=== PATIENT | female | born 1995 | race Caucasian/White ===

== ENCOUNTER 2017-12-13 17:13 | Emergency (ER) | payer OTHER ==
[2017-12-13] MEDS ORDERED: DIPHTH,PERTUSS(ACELL),TET 0.5 ML DISP.SYRIN IM ONE (17:14)
--- NOTE | 2017-12-13 17:14 | PDOC ---
History of Present Illness - General History Source: Patient Exam Limitations: No Limitations - History of Present Illness Initial Comments: 12/13/17 18:02 The patient is a 22 year old female with a significant PMH of melanoma who presents to the emergency department with a left foot injury prior to arrival to the ED. The patient [place] she stepped on a metal dariusz in the water. The patient reports the dariusz got lodged into her left foot. The patient states that the dariusz subsequently broke off into her foot. She reports some mild pain. The patient denies any other symptoms. She denies any other symptoms. She denies any numbness, weakness or tingling sensation. She denies any fever, chills, nausea, vomit, diarrhea ,constipation or urinary symptoms. She denies any chest pain, shortness of breath, headache and dizziness. The patient denies any other complaints. <Charu Grande - Last Filed: 12/13/17 18:02> <Ciera Garibay - Last Filed: 12/13/17 18:51> - General Chief Complaint: Foreign Body (FB) Stated Complaint: LEFT FOOT FISHING HOOK Time Seen by Provider: 12/13/17 17:14 Past History <Charu Grande - Last Filed: 12/13/17 18:02> - Past Medical History Anemia: No Asthma: No Cancer: Yes (MALIGNANT MELANOMA LEFT THIGH) Cardiac Disorders: No CVA: No COPD: No CHF: No Dementia: No Diabetes: No GI Disorders: No Disorders: No HTN: No Hypercholesterolemia: No Liver Disease: No Seizures: No Thyroid Disease: No - Immunization History Immunization Up to Date: Yes - Suicide/Smoking/Psychosocial Hx Smoking Status: Yes Smoking History: Current every day smoker Have you smoked in the past 12 months: Yes Number of Cigarettes Smoked Daily: 3 'Breaking Loose' booklet given: 06/15/15 Hx Alcohol Use: No Drug/Substance Use Hx: No Substance Use Type: None Hx Substance Use Treatment: No <Ciera Garibay - Last Filed: 12/13/17 18:51> - Past Medical History Allergies/Adverse Reactions: Allergies Allergy/AdvReac Type Severity Reaction Status Date / Time No Known Drug Allergies Allergy Verified 12/13/17 17:14 Home Medications: Ambulatory Orders Cephalexin Monohydrate [Keflex -] 500 mg PO Q6H #28 capsule 12/13/17 levoFLOXacin [Levaquin] 750 mg PO DAILY #7 tab 12/13/17 Review of Systems - Review of Systems Able to Perform ROS?: Yes Comments:: 12/13/17 18:02 GENERAL/CONSTITUTIONAL: No fever or chills. No weakness. HEAD, EYES, EARS, NOSE AND THROAT: No change in vision. No ear pain or discharge. No sore throat. CARDIOVASCULAR: No chest pain or shortness of breath. RESPIRATORY: No cough, wheezing, or hemoptysis. GASTROINTESTINAL: No nausea, vomiting, diarrhea or constipation. GENITOURINARY: No dysuria, frequency, or change in urination. MUSCULOSKELETAL:(+) left foot injury. No joint or muscle swelling or pain. No neck or back pain. SKIN: No rash NEUROLOGIC: No headache, vertigo, loss of consciousness, or change in strength/ sensation. ENDOCRINE: No increased thirst. No abnormal weight change. HEMATOLOGIC/LYMPHATIC: No anemia, easy bleeding, or history of blood clots. ALLERGIC/IMMUNOLOGIC: No hives or skin allergy. <Charu Grande - Last Filed: 12/13/17 18:02> *Physical Exam - Vital Signs Last Vital Signs Temp Pulse Resp BP Pulse Ox 98.5 F 91 H 20 113/68 97 12/13/17 17:13 12/13/17 17:13 12/13/17 17:13 12/13/17 17:13 12/13/17 17:13 - Physical Exam Comments: 12/13/17 18:03 GENERAL: Awake, alert, and fully oriented, in no acute distress HEAD: No signs of trauma EYES: PERRLA, EOMI, sclera anicteric, conjunctiva clear ENT: Auricles normal inspection, hearing grossly normal, nares patent, oropharynx clear without exudates. Moist mucosa NECK: Normal ROM, supple, no lymphadenopathy, JVD, or masses LUNGS: Breath sounds equal, clear to auscultation bilaterally. No wheezes, and no crackles HEART: Regular rate and rhythm, normal S1 and S2, no murmurs, rubs or gallops ABDOMEN: Soft, nontender, normoactive bowel sounds. No guarding, no rebound. No masses EXTREMITIES: (+) left foot dariusz going under plantar surface of left 5th toe at head of MTP with skin tenting on external side of toe, small superficial abrasion to bilateral knee. Normal range of motion, no edema. No clubbing or cyanosis. No cords, erythema. NEUROLOGICAL: Cranial nerves II through XII grossly intact. Normal speech, normal gait SKIN: Warm, Dry, normal turgor, no rashes or lesions noted. <Charu Grande - Last Filed: 12/13/17 18:02> Procedures - Additional Procedures Additional Procedures: other Progress: 12/13/17 18:49 foreign body removal: foot cleaned and washed with nss, foot prepped with chlorhexadine. pt given 2% lidocaine - 5cc SQ for anesthesias. Using a forceps, the dariusz was removed with ease. The foot was irrigated with 1L nss after removal and also washed with betadine injection into the wound. THe foot was then soaked in a betadine wash. No bleeding from the site. Pt tolerated the procedure well. <Ciera Garibay - Last Filed: 12/13/17 18:51> Medical Decision Making - Medical Decision Making 12/13/17 17:29 22yo female with L foot 5th toe foreign body going through 5th mtp. -will obtain xray -will update tetanus -will give abx 12/13/17 18:07 pt with dariusz to plantar surface of the foot case discussed with Dr. Tobias who recommends pulling it out and thoroughly irrigating will give abx reommends follow up thursday in the office for a wound check 12/13/17 18:42 repeat xray clear no foreign body present dressing applied to the foot no bleeding from the puncture site stable for d/c to home discussed all reasons to return to the ED and need for follow up <Ciera Garibay - Last Filed: 12/13/17 18:51> *DC/Admit/Observation/Transfer - Attestations Scribe Attestion: 12/13/17 18:03 Documentation prepared by Charu Grande, acting as medical cost consultant for Ciera Garibay MD <Charu Grande - Last Filed: 12/13/17 18:02> - Discharge Dispostion Decision to Admit order: No - Attestations Physician Attestion: 12/13/17 18:13 I, Dr. Ciera Garibay, DO, attest that this document has been prepared under my direction and personally reviewed by me in its entirety. I further attest, that it accurately reflects all work, treatment, procedures and medical decision -making performed by me. <Ciera Garibay - Last Filed: 12/13/17 18:51> Diagnosis at time of Disposition: Puncture wound of foot, left, Foreign body (FB) in soft tissue - Discharge Dispostion Disposition: HOME Condition at time of disposition: Stable - Prescriptions Prescriptions: Cephalexin Monohydrate [Keflex -] 500 mg PO Q6H #28 capsule levoFLOXacin [Levaquin] 750 mg PO DAILY #7 tab - Referrals Referrals: Brian Tobias MD [Staff Physician] - - Patient Instructions Printed Discharge Instructions: DI for Puncture Wound Additional Instructions: Please keep the wound clean and dry. Please take all antibiotics to completion. Please follow up with the orthopedist on thursday. Please call thursday to make an appointment to see Dr. Tobias. If you develop fevers, drainage from the wound, or redness please return to the ED immediately.
[2017-12-13 17:37] VITALS: BP 113/68; PULSE 91; TEMP 98.5
[2017-12-13] MEDS ORDERED: LIDOCAINE HCL 2% (20ML MULTI-DOSE VIAL) NR ONE (17:46)
[2017-12-13] MEDS ORDERED: CEPHALEXIN MONOHYDRATE 500 MG CAPSULE (UD) PO ONE (18:06)
[2017-12-13] MEDS ORDERED: LIDOCAINE HCL 2% (50ML VIAL) SQ ONE (18:07)
[2017-12-13] MEDS ORDERED: CEPHALEXIN MONOHYDRATE 500 MG CAPSULE (UD) ONE (18:35)
== END 2017-12-13 19:02 | disposition home or self-care (01) ==
LOC: FER 17:13
PROC: 3E0234Z Introduction of Serum, Toxoid and Vaccine into Muscle, Percutaneous Approach (ICD-10-PCS; principal; 2017-12-13)
DX: S91.342A Puncture wound with foreign body, left foot, initial encounter (principal); W22.8XXA Striking against or struck by other objects, initial encounter; Y93.11 Activity, swimming; Y92.832 Beach as the place of occurrence of the external cause; F17.210 Nicotine dependence, cigarettes, uncomplicated; Z85.820 Personal history of malignant melanoma of skin
CPT/HCPCS: 73630-TC-LT; 90715; 99282-25

== ENCOUNTER 2018-11-18 00:31 | Emergency (ER) | payer OTHER ==
[2018-11-18 00:50] VITALS: BP 112/78; PULSE 83; TEMP 98.3; BMI 26.6
--- NOTE | 2018-11-18 00:55 | PDOC ---
History of Present Illness - General Chief Complaint: Injury Stated Complaint: L FOOT LAC Time Seen by Provider: 11/18/18 00:36 - History of Present Illness Initial Comments: This 23-year-old woman with a past history of melanoma (left thigh,2014) presents with laceration of the left foot. Just prior to presentation as she was washing her foot in kitchen sink, lateral aspect of left heel was cut with the sharp edge of metal can that was in the sink. No other injury sustained. There was copious bleeding from laceration that was controlled with pressure, but recurred with walking. Last tetanus prophylaxis 2017 Past History - Past Medical History Allergies/Adverse Reactions: Allergies Allergy/AdvReac Type Severity Reaction Status Date / Time No Known Drug Allergies Allergy Verified 12/13/17 17:14 Home Medications: Ambulatory Orders Cephalexin Monohydrate [Keflex -] 500 mg PO Q6H #28 capsule 12/13/17 levoFLOXacin [Levaquin] 750 mg PO DAILY #7 tab 12/13/17 Anemia: No Asthma: No Cancer: Yes (MALIGNANT MELANOMA LEFT THIGH) Cardiac Disorders: No CVA: No COPD: No CHF: No Dementia: No Diabetes: No GI Disorders: No Disorders: No HTN: No Hypercholesterolemia: No Liver Disease: No Seizures: No Thyroid Disease: No - Immunization History Immunization Up to Date: Yes - Suicide/Smoking/Psychosocial Hx Smoking Status: Yes Smoking History: Unknown if ever smoked Have you smoked in the past 12 months: No Number of Cigarettes Smoked Daily: 0 Information on smoking cessation initiated: No 'Breaking Loose' booklet given: 06/15/15 Hx Alcohol Use: No Drug/Substance Use Hx: No Substance Use Type: None Hx Substance Use Treatment: No Trauma Specific PMHX - Complaint Specific PMHX Arthritis: No Back Injury: No Neck Injury: No Hx Sacro Iliac Joint Dysfunction: No Review of Systems - Review of Systems Able to Perform ROS?: Yes Comments:: 12 point review of systems is negative except for what is noted in the history of present illness *Physical Exam - Vital Signs Last Vital Signs Temp Pulse Resp BP Pulse Ox 98.3 F 83 14 112/78 99 11/18/18 00:35 11/18/18 00:35 11/18/18 00:35 11/18/18 00:35 11/18/18 00:35 - Physical Exam Comments: GENERAL: Adult female, alert and oriented 3, no acute distress HEAD: Normal with no signs of trauma. EYES: PERRLA, EOMI, sclera anicteric, conjunctiva clear. EXTREMITIES: Left lower [id number] 12 cm vertical wound midline anterior thigh 2.5 cm horizontal , linear, clean edged full-thickness laceration below lateral malleolus , nonbleeding Distal neurovascular functioning intact; motor functioning intact distally Extremity exam otherwise normal NEUROLOGICAL: Cranial nerves II through XII grossly intact. Normal speech. No focal neurologic deficits Procedures - Laceration/Wound Repair Left Lateral Foot Wound Length: 2.6 to 5.0 cm Wound Explored: clean Wound's Depth, Shape: linear Irrigated w/ Saline: Yes Betadine Prep: No (chlorhexidene/ethanol) Anesthesia: 1% Lidocaine Amount of Anesthetic (ccs): 2 Wound Repaired With: Sutures Suture Size/Type: 4:0 Number of Sutures: 3 Layer Closure: No Sterile Dressing Applied: Yes Splint Applied: No Sling Applied: No Progress: Area around the left lateral hindfoot laceration cleansed using Hibiclens/ ethanol solution. Wound anesthetized using 2 mL of 1% lidocaine injected subcutaneously. Wound inspected: Full thickness but no evidence of neurovascular injury. No tendon disruption evident. Wound irrigated with 40 mL of sterile normal saline. Wound edges closely approximated and wound closed using 3 interrupted sutures of 4-0 nylon. Bacitracin and sterile gauze dressing applied. Patient tolerated procedure well Progress Note - Progress Note Progress Note: Closure of linear, straight edge, full-thickness but nonbleeding laceration of the lateral aspect of the left hindfoot performed as described above. Original dressing should be kept in place for 2 days with elevation of left foot when possible during that time. Dressing should be kept as dry as possible. After original dressing is removed, protective dressing during day/open at night. Sutures should be removed in approximately 10 days (11/26/18). If any evidence of inflammation/infection of the wound occurs, the patient should return to the emergency room or see her doctor. *DC/Admit/Observation/Transfer Diagnosis at time of Disposition: Foot laceration Qualifiers: Encounter type: initial encounter Laterality: left Qualified Code(s): S91.312A - Laceration without foreign body, left foot, initial encounter - Discharge Dispostion Disposition: HOME Condition at time of disposition: Stable - Referrals Referrals: Anastasiia Coronado MD [Primary Care Provider] - - Patient Instructions Printed Discharge Instructions: How to Care for a Laceration After Repair Additional Instructions: Keep foot elevated when possible for the next 2 days Keep original dressing intact as dry as possible for 2 days After 2 days, protective dressing (Bandaid) during day/open at night Bacitracin or Neosporin to wound daily until sutures removed Have sutures removed November 26 Return or see your doctor if area becomes red/swollen/painful - Post Discharge Activity
== END 2018-11-18 01:45 | disposition home or self-care (01) ==
LOC: FER 00:31
PROC: 0HQLXZZ Repair Left Lower Leg Skin, External Approach (ICD-10-PCS; principal; 2018-11-18)
DX: S91.312A Laceration without foreign body, left foot, initial encounter (principal); Z85.820 Personal history of malignant melanoma of skin; W26.8XXA Contact with other sharp object(s), not elsewhere classified, initial encounter; Y93.E8 Activity, other personal hygiene; Y92.000 Kitchen of unspecified non-institutional (private) residence as the place of occurrence of the external cause
CPT/HCPCS: 99282-25

== ENCOUNTER 2019-02-01 23:08 | Emergency (ER) | payer OTHER ==
[2019-02-01 23:19] VITALS: BP 109/73; PULSE 90; TEMP 98.2; BMI 25.7
--- NOTE | 2019-02-01 23:33 | PDOC ---
History of Present Illness - General Chief Complaint: Pain, Acute Stated Complaint: SWELLING AND PAIN TO LEFT FOOT/LEG Time Seen by Provider: 02/01/19 23:20 - History of Present Illness Initial Comments: This 23-year-old woman with history of malignant melanoma of the left thigh 4 years ago (with wide excision/lymph node dissection of the left inguinal area) presents with a few days of increasing edema of the left leg. Patient has noted discomfort of the leg for the last several days, starting from the foot and ankle area and extending to the mid leg. This discomfort was particularly evident during weightbearing and activity involving her lower extremities. She noted swelling a few days ago with progression proximally. no known trauma or strenuous overuse of the leg. There has been no recent open wound in the area and patient denies erythema/increased warmth in the leg. No fever/chills. No history of cellulitis. No history of thromboembolic issues. No history of edema of the left leg in the past. Medications as noted below. No known drug allergies Past History - Past Medical History Allergies/Adverse Reactions: Allergies Allergy/AdvReac Type Severity Reaction Status Date / Time No Known Drug Allergies Allergy Verified 02/01/19 23:10 Home Medications: Ambulatory Orders Bupropion HCl [Wellbutrin Xl -] 450 mg PO DAILY 02/01/19 Lamotrigine [Lamictal] 200 mg PO DAILY 02/01/19 Trazodone HCl 200 mg PO HS 02/01/19 Diclofenac Sodium [Voltaren -] 75 mg PO BID PRN #20 tablet. 02/02/19 Tizanidine HCl 2 mg PO TID PRN #12 tablet 02/02/19 Anemia: No Asthma: No Cancer: Yes (MALIGNANT MELANOMA LEFT THIGH) Cardiac Disorders: No CVA: No COPD: No CHF: No Dementia: No Diabetes: No GI Disorders: No Disorders: No HTN: No Hypercholesterolemia: No Liver Disease: No Seizures: No Thyroid Disease: No - Immunization History Immunization Up to Date: Yes - Psycho Social/Smoking Cessation Hx Smoking Status: Yes Smoking History: Never smoked Have you smoked in the past 12 months: No Number of Cigarettes Smoked Daily: 3 Information on smoking cessation initiated: No 'Breaking Loose' booklet given: 06/15/15 Hx Alcohol Use: No Drug/Substance Use Hx: No Substance Use Type: None Hx Substance Use Treatment: No Review of Systems - Review of Systems Able to Perform ROS?: Yes Comments:: 12 point review of systems is negative except for what is noted in the history of present illness *Physical Exam - Vital Signs Last Vital Signs Temp Pulse Resp BP Pulse Ox 98.2 F 90 16 109/73 100 02/01/19 23:15 02/01/19 23:15 02/01/19 23:15 02/01/19 23:15 02/01/19 23:15 - Physical Exam Comments: GENERAL: Adult female, alert and oriented x3, no acute distress; pulse oximetry 100% on room air HEAD: Normal with no signs of trauma. EYES: PERRLA, EOMI, sclera anicteric, conjunctiva clear. LUNGS: Clear to auscultation bilaterally EXTREMITIES: Left lower extremity -moderate nonpitting edema foot/ankle/ extremity and distal thigh No erythema/increased warmth to touch. No palpable cords Mild tenderness to palpation of medial calf/medial thigh. No lymphangitic streaking noted Pain reproduced with abduction and extension of leg No open wound noted on foot or any proximal area of the leg Extremity exam otherwise normal NEUROLOGICAL: Cranial nerves II through XII grossly intact. Normal speech. No focal neurological deficits. SKIN: Warm, Dry, normal turgor, no rashes or lesions noted. Medical Decision Making - Medical Decision Making As noted above, this 23-year-old woman with a history of malignant melanoma of the left thigh with a history of wide excision and lymph node dissection of the left inguinal region presents with few day history of progressive edema and discomfort in the lower left leg. No history of recent trauma or overuse. No open wound present in the left leg. No previous history of left leg edema. Exam as noted. Because of the patient's history of malignancy, she is at risk for thromboembolic process. Doppler duplex ultrasound study of the left lower extremity performed to evaluate for acute DVT. Preliminary interpretation of study by Imaging telecommunications technician: No evidence of acute DVT of left lower extremity. There is heterogeneous nonspecific echogenicity in the left groin soft tissues, otherwise no abnormality seen. Recommendation is made for outpatient MRI with contrast if there is clinical concern for melanoma recurrence. Patient will continue to elevate the left leg as previously. The patient was given Toradol 60 mg IM for pain relief. She also asked for muscle relaxant since the discomfort she feels she compares to tight or spasm muscle. Flexeril 10 mg by mouth given now. Prescription for diclofenac 75 mg twice a day with food as needed for pain as well as tizanidine 2 mg up to 3 times a day as needed for muscle spasm discomfort will be sent to her pharmacy. She should call her surgical oncologist office (Dr. Anastasiia Coronado) in the a.m. to arrange follow-up within 48 hours She should return to the ER immediately if she notes erythema/increased pain, increased swelling or if fever/chills occurs. Discharge - Discharge Information Problems reviewed: Yes Clinical Impression/Diagnosis: Leg edema, left Condition: Stable Disposition: HOME - Additional Discharge Information Prescriptions: Diclofenac Sodium [Voltaren -] 75 mg PO BID PRN #[address] tablet[address] KIM Reason: Pain Tizanidine HCl 2 mg PO TID PRN #12 tablet PRN Reason: Muscle Spasms - Follow up/Referral - Patient Discharge Instructions Patient Printed Discharge Instructions: DI for Peripheral Edema, Unilateral Additional Instructions: Continue to elevate left leg Diclofenac 75 mg twice a day (take with food)/tizanidine 2 mg 3 times a day as needed for pain/spasms Call Dr Coronado in AM for followup within 48 hours Return to ER if you have fever/chills, redness/increased pain in the leg - Post Discharge Activity
[2019-02-02] MEDS ORDERED: KETOROLAC TROMETHAMINE 60 MG/2 ML VIAL ONE (02:03)
[2019-02-02] MEDS ORDERED: CYCLOBENZAPRINE HCL 10 MG TABLET (FP) ONE (02:03)
[2019-02-02] MEDS ORDERED: CYCLOBENZAPRINE HCL 10 MG TABLET (FP) PO ONE (02:09)
[2019-02-02] MEDS ORDERED: KETOROLAC TROMETHAMINE 60 MG/2 ML VIAL IM ONE (02:09)
== END 2019-02-02 02:14 | disposition home or self-care (01) ==
LOC: FER 23:08
PROC: 3E0233Z Introduction of Anti-inflammatory into Muscle, Percutaneous Approach (ICD-10-PCS; principal; 2019-02-01)
DX: M79.89 Other specified soft tissue disorders (principal); C43.72 Malignant melanoma of left lower limb, including hip; C79.9 Secondary malignant neoplasm of unspecified site
CPT/HCPCS: 93971-TC; 99281-25

== ENCOUNTER 2020-03-25 09:46 | Emergency (ER) | payer BC, OTHER ==
[2020-03-25 10:13] VITALS: BP 100/68; PULSE 95; TEMP 98.3; BMI 25.7
[2020-03-25] MEDS ORDERED: ACETAMINOPHEN 325 MG TABLET (FP) PO ONE (10:34)
[2020-03-25] MEDS ORDERED: KETOROLAC TROMETHAMINE 15 MG/ML VIAL ONE (10:51)
[2020-03-25] MEDS ORDERED: ACETAMINOPHEN 325 MG TABLET (FP) ONE (10:51)
[2020-03-25] MEDS ORDERED: KETOROLAC TROMETHAMINE 15 MG/ML VIAL IVPUSH ONE (10:53)
[2020-03-25 11:17] LABS: ALBUMIN 4.3 g/dl (3.4-5.0); BILIRUBIN,TOTAL 0.7 mg/dl (0.2-1); CALCIUM 9.3 mg/dl (8.5-10); CREATININE 0.8 mg/dl (0.55-1.3); POTASSIUM 4.1 mmol/L (3.5-5.1); TOT PROT 6.6 g/dl (6.4-8.2)
[2020-03-25 12:37] LABS: HEMATOCRIT 40.1 % (32.4-45.2); HEMOGLOBIN 14.1 GM/dL (10.7-15.3); MCH 30.3 pg (25.7-33.7); MCHC 35.1 g/dl (32.0-36.0); MEAN CELL VOLUME 86.2 fl (80-96); MEAN PLT VOLUME 10.3 fl (7.5-11.1); PLATELET COUNT 184 K/MM3 (134-434); RBC 4.65 M/mm3 (3.60-5.2); RDW 12.7 % (11.6-15.6); WHITE BLOOD COUNT 6.3 K/mm3 (4.0-10.0)
== END 2020-03-25 14:20 | disposition home or self-care (01) ==
LOC: FER 09:46
PROC: 3E0333Z Introduction of Anti-inflammatory into Peripheral Vein, Percutaneous Approach (ICD-10-PCS; principal; 2020-03-25)
DX: S92.351A Displaced fracture of fifth metatarsal bone, right foot, initial encounter for closed fracture (principal)
CPT/HCPCS: 36415; 70450-TC; 73630-TC-RT-FY; 80053; 81003; 82550; 84484; 84703; 85027; 87086; 93005; 99285-25